=== PATIENT | male | born 1960 | race Caucasian/White ===

== ENCOUNTER 2025-01-01 12:37 | Outpatient (OUT) | payer MEDICARE, SELFPAY ==
--- OUTSIDE RECORDS SUMMARY | 2024-12-25 23:59 | XMS_ITS | Continuity of Care Document ---
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 Appointment Type:URO Office Visit Appointment Date:11/26/2025 09:30:00 AM Scheduled Provider: Location:[facility] Appointment Type:FM Medicare Wellness Subsequent Future Scheduled Tests Laboratory* HgbA1c 07/31/24 * PSA Free & Total 03/09/25 * PSA Free & Total 08/07/24 * PSA Free & Total 07/31/24 * HCV Antibody RFX to Quant PCR 11/26/24 * CBC w/ Auto Diff 07/31/24 * Comprehensive Metabolic Panel 07/31/24 * Lipid Panel 07/31/24 Immunizations Given and Recorded Vaccine Date Status Refusal Reason tetanus toxoid 10/22/20 Recorded diphtheria/pertussis, acel/tetanus adult 06/09/12 Recorded Not Given Vaccine Date Status Refusal Reason influenza virus vaccine, inactivated 02/02/24 Not Given Patient Refuses influenza virus vaccine, inactivated 04/28/22 Not Given Patient Refuses influenza virus vaccine, inactivated 02/03/22 Not Given Patient Refuses influenza virus vaccine, inactivated 07/29/21 Not Given Refused by parent, g uardian, or patient - reschedule influenza virus vaccine, inactivated 07/22/20 Not Given Refused by parent, g uardian, or patient - reschedule SARS-CoV-2 mRNA (tozinameran 5y-11y) vac 04/28/22 Not Given Refused by parent, g uardian, or patient - reschedule SARS-CoV-2 (COVID-19) Ad26 vaccine 01/28/21 Not Gi thuan Refused by parent, guardian, or patient - reschedule influenza virus vaccine, ashley e, trivalent 06/20/19 Not Given Patient Refuses Medications acetaminophen 500 mg Tab 500 mg = 1 tab(s), Oral, q4hr, not to exceed 4000 mg/day, # 60 tab(s), Refills(s) 0, other reason (Rx) Start Date: 04/26/24 Status: Ordered Quantity: 60.0 Unit: tab(s) Repeat number: 1 Advil Oral, q6hr, Refills(s) 0 Start Date: 11/26/24 Status: Ordered Repeat number: 1 amLODIPine 10 mg Tab 10 mg = 1 tab(s), Oral, Daily, # 90 tab(s), Refills(s) 3, Pharmacy: [facility] #[id number], 184, cm, 02/02/24 10:12:00 EDT, Height/Length Dosing, 102.8, kg, 02/02/24 10:12:00 EDT, Weight Dosing Start Date: 02/02/24 Status: Ordered Quantity: 90.0 Unit: tab(s) Repeat number: 4 Cipro 500 mg Tab 500 mg = 1 tab(s), Oral, BID, Start 1 day prior to procedure., # 6 tab(s), Refills(s) 0, Pharmacy: [facility] #[id number], 184, cm, 12/03/24 11:20:00 EDT, Height/Length Dosing, 94.6, kg, 12/03/24 11:20:00 EDT, Weight Dosing Start Date: 12/03/24 Status: Ordered Quantity: 6.0 Unit: tab(s) Repeat number: 1 Colace 100 mg Cap 100 mg = 1 cap(s), Oral, Daily, Refills(s) 0 Start Date: 04/26/24 Status: Ordered Repeat number: 1 duloxetine 60 mg oral delayed release capsule 60 mg = 1 cap(s), Oral, Daily, # 90 cap(s), Refills(s) 3, Pharmacy: [facility] #[id number], 184, cm, 02/02/24 10:12:00 EDT, Height/Length Dosing, 102.8, kg, 02/02/24 10:12:00 EDT, Weight Dosing Start Date: 02/02/24 Status: Ordered Quantity: 90.0 Unit: cap(s) Repeat number: 4 hydrochlorothiazide-lisinopril 12.5 mg-20 mg Tab 1 tab(s), Oral, Daily, 90 tab(s), Refill(s) 3, [facility] #[id number], 184, cm, 02/02/24 10:12:00 EDT, Height/Length Dosing, 102.8, kg, 02/02/24 10:12:00 EDT, Weight Dosing Start Date: 02/02/24 Status: Ordered Quantity: 90.0 Unit: tab(s) Repeat number: 4 melatonin 3 mg Tab 3 mg = 1 tab(s), Oral, Bedtime, PRN Insomnia, Refills(s) 0 Start Date: 04/26/24 Status: Ordered Repeat number: 1 Unisom mg, Oral, Daily, Refills(s) 0 Start Date: 11/26/24 Status: Ordered Repeat number: 1 Problem List Condition Confirmation Course Effective Dates Status H ealth Status Informant Abdominal bloating Confirmed Active Change in bowel habits Confirmed Active BPH with obstruction/lower urinary tract symptoms Confirmed Active Edema of both legs Confirmed Active BMI 31.0-31.9,adult Confirmed Resolved Chronic back pain Confirmed Active Chronic neck pain Confirmed Active Erectile dysfunction Confirmed Active Former smoker Confirmed Active Ganglion cyst of left foot Confirmed Active GERD (gastroesophageal reflux disease) Confirmed Active History of fusion of cervical spine Confirmed Active Hyperglycemia Confirmed Active Hypertension Confirmed Active Insomnia Confirmed Active Meralgia paresthetica of left side Confirmed Active Hyperlipidemia, mixed Confirmed Active Osteoarthritis of multiple joints Confirmed Active Overweight Confirmed Active BMI 27.0-27.9,adult Confirmed Active Leg pain, left Confirmed Active Knee pain, left Confirmed Active Welcome to Medicare preventive visit Confirmed Active Elevated PSA Confirmed Active Rosacea Confirmed Active Seborrheic keratosis Confirmed Active Bilateral shoulder pain Confirmed Active Procedures Procedure Date Related Diagnosis Body Site Status MRI guided biopsy of prostate 12/13/24 Completed MRI of prostate 11/08/24 Completed Colonoscopy 07/04/19 Completed History of lumbar spine surgery 02/2019 Completed Left Transforaminal Epidural Steroid Injection 1 11/21/18 Completed Transrectal biopsy of prosta te using ultrasound guidance 04/29/16 Completed left foot incision and drainage/debridement 04/30/15 Completed excision of ganglion soft ti ssue mass at the lateral left foot 02/26/15 Complet ed b/l Carpal tunnel 2 Compl eted Cervical fusion Neck 3 Co mpleted H/O: vasectomy Completed Lower back discectomy and la minectomy in 2004 Completed Shoulder repair- with clips Completed 1L4/5 Left- 100% relief for 1 day, no relief after that. 2b/l surgeries [id number] Social History Social History Type Response Smoking Status Former smoker, quit more than 30 days ago;Never; Type: Cigarettes; Tobacco use per day: 1; Number of years: 29; Total pack years: 29; Started at age: 19.0; Stopped at age: 48; 1, 2 entered on: 12/13/24 Sex Male Sex Representation Male (finding) 1denies use, quit 2008 2quit 2009 Hospital Discharge Instructions Patient Education 12/25/2024 10:36:33 Prostate Cancer Screening Prostate Cancer Screening Prostate cancer screening is testing that is done to check for the presence of prostate cancer in men. The prostate gland is a walnut-sized gland that is located below the bladder and in front of therectum in males. The function of the prostate is to add fluid to semen during ejaculation. Prostatecancer is one of the most common types of cancer in men. Who should have prostate cancer screening? Screening recommendations vary based on age and other risk factors, as well as between the professional organizations who make the recommendations. In general, screening is recommended if: ??? You are age 50 to 70 and have an average risk for prostate cancer. You should talk with your health care provider about your need for screening and how often screening should be done. Because most prostate cancers are slow growing and will not cause , screening in this age group is generally reserved for men who have a 10- to 15-year life expectancy. ??? You are younger than age 50, and you have these risk factors: ??? Having a father, brother, or uncle who has been diagnosed with prostate cancer. The risk is higher if your family member's cancer occurred at an early age or if you have multiple family members with prostate cancer at an early age. ??? Being a male who is Black or is of [place] or sub-Saharan descent. In general, screening is not recommended if: ??? You are younger than age 40. ??? You are between the ages of 40 and 49 and you have no risk factors. ??? You are 70 years of age or older. At this age, the risks that screening can cause are greater than the benefits that it may provide. If you are at high risk for prostate cancer, your health care provider may recommend that you have screenings more often or that you start screening at a younger age. How is screening for prostate cancer done? The recommended prostate cancer screening test is a blood test called the prostate-specific antigen(PSA) test. PSA is a protein that is made in the prostate. As you age, your prostate naturally produces more PSA. Abnormally high PSA levels may be caused by: ??? Prostate cancer. ??? An enlarged prostate that is not caused by cancer (benign prostatic hyperplasia, or BPH). This condition is very common in older men. ??? A prostate gland infection (prostatitis) or urinary tract infection. ??? Certain medicines such as male hormones (like testosterone) or other medicines that raise testosterone levels. A rectal exam may be done as part of prostate cancer screening to help provide information about the size of your prostate gland. When a rectal exam is performed, it should be done after the PSA level is drawn to avoid any effect on the results. Depending on the PSA results, you may need more tests, such as: ??? A physical exam to check the size of your prostate gland, if not done as part of screening. ??? Blood and imaging tests. ??? A procedure to remove tissue samples from your prostate gland for testing (biopsy). This is theonly way to know for certain if you have prostate cancer. What are the benefits of prostate cancer screening? Screening can help to identify cancer at an early stage, before symptoms start and when the cancer can be treated more easily. ??? There is a small chance that screening may lower your risk of dying from prostate cancer. The chance is small because prostate cancer is a slow-growing cancer, and most men with prostate cancer from a different cause. What are the risks of prostate cancer screening? The main risk of prostate cancer screening is diagnosing and treating prostate cancer that would never have caused any symptoms or problems. This is called overdiagnosisand overtreatment. PSA screening cannot tell you if your PSA is high due to cancer or a different cause. A prostate biopsy is the only procedure to diagnose prostate cancer. Even the results of a biopsy may not tell you if your cancer needs to be treated. Slow-growing prostate cancer may not need any treatment other than monitoring, so diagnosing and treating it may cause unnecessary stress or other side effects. Questions to ask your health care provider ??? When should I start prostate cancer screening? What is my risk for prostate cancer? How often do I need screening? What type of screening tests do I need? How do I get my test results? What do my results mean? Do I need treatment? Where to find more information ??? The [place] [employer]: www.cancer.org ??? [employer]: www.auanet.org Contact a health care provider if: ??? You have difficulty urinating. ??? You have pain when you urinate or ejaculate. ??? You have blood in your urine or semen. ??? You have pain in your back or in the area of your prostate. Summary ??? Prostate cancer is a common type of cancer in men. The prostate gland is located below the bladder and in front of the rectum. This gland adds fluid to semen during ejaculation. ??? Prostate cancer screening may identify cancer at an early stage, when the cancer can be treatedmore easily and is less likely to have spread to other areas of the body. ??? The prostate-specific antigen (PSA) test is the recommended screening test for prostate cancer,but it has associated risks. ??? Discuss the risks and benefits of prostate cancer screening with your health care provider. If you are age 70 or older, the risks that screening can cause are greater than the benefits that it may provide. This information is not intended to replace advice given to you by your health care provider. Make sure you discuss any questions you have with your health care provider. Document Revised: 10/19/2021 Document Reviewed: 10/19/2021 [email or web address] Patient Education ?? 2023 [employer]. Follow Up Care 12/14/2024 14:56:41 With:TOY ALONSO, ROCCO BARNHART Address: When: Unknown Patient Care team information Care Team Personnel Name: Narinder LU MD Position: Ambulatory - Urology Provider Member Role: Attending Address: [address] [facility] [address] Telecom: Name: Tanner OLIVIER MD Position: Ambulatory - Primary Care Provider? Member Role: Primary Care Physician Address: [facility] [address] [place] [id number]- Telecom: Name: Barbra CHAVARRIA, RNVicenta Position: FT CV Nurse Member Role: PICC Nurse Name: Araseli Murrell RN Position: Infant Childcare Provider - Self Assign Member Role: Counter Molder Care Team Related Persons Name: TERRELL HAYWARD Name: TERRELL HAYWARD Name: TERRELL HAYWARD Insurance Providers Guarantor name: SARAH HAYWARD Health Plan Information #: 1 Payer: [employer] Payer Identifier: [id number] Member Number: [id number] Group Number: [id number] Subscriber Identifier: [id number] Relationship to Subscriber: Self Coverage Type: MEDICARE Coverage Verification Date: 24 Telecom: [phone] Address: [facility] [id number] [address]
--- OUTSIDE RECORDS SUMMARY | 2025-01-01 12:40 | XMS_ITS | Encounter Summary ---
Author Organization [facility] Address [address] [place] [address] Care Team Providers Care Director Blood Bank Name Role Phone Tanner Sanchez MD Primary Care Provider Encounter Details Date Type Department Care Team (Late st Contact Info) Description 03/15/2024 Abstract [facility] [address] [place] [phone] Tay Arenas DO [address] [place] [address] Social History Tobacco Use Types Packs/Day Years Used Date Smoking Tobacco: Every Day Cigarettes Alcohol Use Standard Drinks/Week Comments Never 0 (1 standard drink = 0.6 oz pur e alcohol) Sex and Gender Information Value Date Recorded Sex Assigned at Not on file Legal Sex Male 6:38 PM EDT Gender Identity Not on file Sexual Orientation Not on file documented as of this encounter Plan of Treatment Not on file documented as of this encounter Visit Diagnoses Not on filedocumented in this encounter Care Teams Director Blood Bank Relationship Specialty Start Date End Date Tanner Sanchez MD [address] [place] [address] PCP - General Internal Medicine 01/23/24 documented as of this encounter
--- OUTSIDE RECORDS SUMMARY | 2025-01-01 12:40 | XMS_ITS | Encounter Summary ---
Author Organization [facility] Address [address] [place] [address] Care Team Providers Care Mobile Sales Expert Name Role Phone Tanner Sanchez MD Primary Care Provider Encounter Details Date Type Department Care Team (Late st Contact Info) Description 03/15/2024 Abstract [facility] [address] [place] [id number] Tay Arenas DO [address] [place] [address] Social History Tobacco Use Types Packs/Day Years [...] on filedocumented in this encounter Care Teams Mobile Sales Expert Relationship Specialty Start Date End Date Tanner Sanchez MD [address] [place] [address] PCP - General Internal Medicine 01/23/24 documented as of this encounter
--- OUTSIDE RECORDS SUMMARY | 2025-01-01 12:40 | XMS_ITS | Clinical Summary ---
Author Organization [facility] Address [address] [place], [place] [address] Care Team Providers Care Film Crew Member Name Role Phone Tanner Sanchez MD Primary Care Provider [phone] Social History Tobacco Use Types Packs/Day Years Used Date Smoking Tobacco: Never Assessed Sex and Gender Information Value Date Recorded Sex Assigned at Not on file Legal Sex Male 11:23 AM EDT Gender Identity Not on file Sexual Orientation Not on file Plan of Treatment Health Maintenance Due Date Last Done Comments Anxiety Screening 07/11/1977 Depression Screening 07/11/1977 HIV Screening 07/11/1977 Hepatitis C Screening 07/11/1977 DTaP,Tdap,Td Vaccine (1 - Tdap) 07/11/1978 Lipid Screening 07/11/1994 CT Colonography 07/11/2004 Cologuard (FIT-DNA) 07/11/2004 Colonoscopy 07/11/2004 Colorectal Cancer Screening 07/11/2004 Diabetes Screening 07/11/2004 Fecal Occult Blood 07/11/2004 Prostate Cancer Screening Discussion 07/11/2004 Sigmoidoscopy 07/11/2004 Pneumococcal Vaccine: 50+ (1 of 1 - PCV) 07/11/2009 Shingrix Vaccine (1 of 2) 07/11/2009 Advance Directive Discussion 07/11/2024 Influenza Vaccine (#1) 2025 RSV Vaccine (1 - 1-dose 75+ series) 07/11/[address] [place] [address] [place] [address] Care Teams Film Crew Member Relationship Specialty Start Date End Date Tanner Sanchez MD PCP - General Internal Medicine 02/24/15
--- OUTSIDE RECORDS SUMMARY | 2025-01-01 12:40 | XMS_ITS | Clinical Summary ---
Author Organization [place] [facility] Address [id number] [address] [place] [address] Care Team Providers Care Medical Insurance Coding Specialist Name Role Phone Tay Arenas Primary Care Provider [phone] Allergies No known active allergies Medications lisinopriL (PRINIVIL,ZESTR IL) 10 mg tablet Take 1 tablet (10 mg total) by mouth in the morning. Active DULoxetine (CYMBALTA) 20 mg capsule Take 1 capsule (20 mg total) by mouth in the morning. Active amLODIPine (NORVASC) 10 mg tablet Take 1 tablet (10 mg total) by mouth in the morning. Active sulfamethoxazol e-trimethoprim (BACTRIM DS) 800-160 mg per tablet Take 1 tablet by mouth in the morning and 1 tablet before bedtime. Active CEPHalexin (KEFLEX) 500 mg capsule Take 1 capsule (500 mg total) by mouth 3 (three) times a day. Active Active Problems Problem Noted Date Diagnosed Date Osteomyelitis of multiple sites 04/26/2024 Immunizations Immunization Administration Dates Next Due Tdap 10/22/2020 Social History Tobacco Use Types Packs/Day Years Used Date Smoking Tobacco: Never Smokeless Tobacco: Never Alcohol Use Standard Drinks/Week Comments Never 0 (1 standard drink = 0.6 oz pur e alcohol) Childcare Answer Date Recorded Childcare Unknown 10/18/2018 Employment Answer Date Recorded Employment Unknown 10/18/2018 Hunger Screening Answer Date Recorded Within the past 12 months we worried whether our food would run out before we got money to buy more. Never True 04/21/2024 Within the past 12 months th e food we bought just didn't last and we didn't have money to get more. Never True 04/21/2024 Purpose - Life Answer Date Recorded Purpose and direction in life Unknown Sex and Gender Information Value Date Recorded Sex Assigned at Not on file Legal Sex Male 11:35 AM EDT Gender Identity Not on file Sexual Orientation Not on file Last Filed Vital Signs Vital Sign Reading Time Taken Comments Blood Pressure 130/72 05/17/2024 8:10 AM EST Pulse 64 05/17/2024 8:10 AM EST Temperature 36.5 C (97.7 F) 05/17/2024 8:10 AM EST Respiratory Rate 18 05/17/2024 8:09 AM EST Oxygen Saturation 100% 05/17/2024 8:10 AM EST Inhaled Oxygen Concentration - - Weight 100.1 kg (220 lb 9.6 oz) 05/17/2024 8:09 AM EST Height 182.9 cm (6' 0.01 ) 05/17/2024 8:09 AM ES T Body Mass Index 29.91 05/17/2024 8:09 AM EST Plan of Treatment Health Maintenance Due Date Last Done Comments Depression Screening 1971 Adult BMI Follow Up Plan 07/11/1977 Zoster (Shingles) Vaccine (1 of 2) 07/11/2009 Influenza Vaccine 01/07/2025 Tobacco Screening 04/27/2025 04/27/2024 Adult BMI Screening 05/17/2025 05/17/2024 Fall Risk Screening 05/17/2025 05/17/2024 DTaP,Tdap and Td Vaccines (3 - Td or Tdap) 10/22/2030 10/22/2020, 06/09/2012 Medical Devices Not on file Insurance [employer] Care Teams Medical Insurance Coding Specialist Relationship Specialty Start Date End Date Tay Arenas DO [address] [place] [address] PCP - General Orthopaedic Surgery 04/21/24
== END 2025-01-01 12:38 | disposition home or self-care (01) ==
LOC: PST 12:38
PROVIDERS: Visit Provider Surgery
DX: Z01.818 Encounter for other preprocedural examination (principal); R19.4 Change in bowel habit

== ENCOUNTER 2025-01-09 06:55 | Day surgery (SDC) | payer MEDICARE, SELFPAY ==
--- NOTE | 2025-01-09 | OP_ITS ---
OPERATION DATE: 01/09/2025 PREOPERATIVE DIAGNOSIS: Change in bowel habits, abdominal bloating. POSTOPERATIVE DIAGNOSIS: Redundant colon. PROCEDURE: Colonoscopy to cecum. SURGEON: Zev Javed M.D. ANESTHESIA: Monitored anesthesia care. ESTIMATED BLOOD LOSS: Zero. INDICATIONS AND CONSENT: Patient is a 64-year-old male, with history of bowel changes, with increased bloating and constipation. Indications, risks, benefits, alternatives of proceeding with colonoscopy were explained extensively to the patient, including the risks of bleeding, colon perforation or anesthetic complications. All of his questions were answered. Informed consent was obtained. PROCEDURE: Patient brought to the operating room, placed in the left lateral decubitus position. Monitored anesthesia care was provided. Rectal exam was performed which showed no masses or blood. The scope was inserted into the anal canal. Under direct visualization was advanced. It was advanced to the cecum where cecal markings were clearly identified. Upon withdrawal of the scope, mucosal surfaces were carefully examined. There were no mass lesions or polyps. No inflammatory changes or ulcerations. There was some brown liquid stool throughout the colon that was partially irrigated clear. There was mild sigmoid diverticulosis without inflammatory changes or scarring. There was noted to be some redundancy of the colon. The scope was retroflexed in the anal canal. There was no significant hemorrhoidal disease. The scope was then withdrawn. Patient tolerated procedure well, was sent to recovery room in good condition.f/u screening colonoscopy in 10 years. CC: Johnny Carrera
--- OUTSIDE RECORDS SUMMARY | 2025-01-09 06:59 | XMS_ITS | Clinical Summary ---
Author Organization [facility] Address [address] [place], [place] [id number] Care Team Providers Care Guidance Counselor Name Role Phone Tanner Sanchez MD Primary Care Provider [phone] Social History Tobacco Use Types Packs/Day Years [...] 1-dose 75+ series) 07/11/[address] [place] [address] [place] [address] Care Teams Guidance Counselor Relationship Specialty Start Date End Date Tanner Sanchez MD PCP - General Internal Medicine 02/24/15
--- OUTSIDE RECORDS SUMMARY | 2025-01-09 06:59 | XMS_ITS | Clinical Summary ---
Author Organization [place] [facility] Address [id number] [address] [place] [address] Care Team Providers Care Apparatus Lineman Name Role Phone Tay Arenas Primary Care Provider [phone] Allergies No known active allergies Medications lisinopriL [...] Medical Devices Not on file Insurance [employer] Care Teams Apparatus Lineman Relationship Specialty Start Date End Date Tay Arenas DO [address] [place] [address] PCP - General Orthopaedic Surgery 04/21/24
--- OUTSIDE RECORDS SUMMARY | 2025-01-09 06:59 | XMS_ITS | Encounter Summary ---
Author Organization [facility] Address [address] [place] [address] Care Team Providers Care Nursing Technician Name Role Phone Tanner Sanchez MD Primary Care Provider Encounter Details Date Type Department Care Team (Late st Contact Info) Description 03/15/2024 Abstract [facility] [address] [place] [phone] Tay Arenas DO [address] [place] [address] Social History Tobacco Use Types Packs/Day Years [...] on filedocumented in this encounter Care Teams Nursing Technician Relationship Specialty Start Date End Date Tanner Sanchez MD [address] [place] [address] PCP - General Internal Medicine 01/23/24 documented as of this encounter
[2025-01-09 07:00] VITALS: BP 125/67; PULSE 59; TEMP 36.4; O2SAT 97; BMI 28.1
--- OUTSIDE RECORDS SUMMARY | 2025-01-09 07:00 | XMS_ITS | Encounter Summary ---
Author Organization [facility] Address [address] [address] Care Team Providers Care Clerk Supervisor Name Role Phone Tanner Sanchez MD Primary Care Provider Encounter Details Date Type Department Care Team (Late st Contact Info) Description 03/15/2024 Abstract [facility] [address] [place] [id number] Tay Arenas DO [address] [place] [address] Social History Tobacco Use Types Packs/Day Years [...] on filedocumented in this encounter Care Teams Clerk Supervisor Relationship Specialty Start Date End Date Tanner Sanchez MD [address] [place] [address] PCP - General Internal Medicine 01/23/24 documented as of this encounter
[2025-01-09 08:24] VITALS: BP 112/68; PULSE 60; TEMP 36.1; O2SAT 96
[2025-01-09 08:38] VITALS: BP 96/60; PULSE 57; O2SAT 99
[2025-01-09 08:54] VITALS: BP 118/75; PULSE 61; O2SAT 98
== END 2025-01-09 08:54 | disposition home or self-care (01) ==
LOC: SURGOUT 06:58
PROVIDERS: PCP Internal Medicine; Visit Provider Surgery
PROC: (CPT 45378; principal; 2025-01-09 08:20)
DX: R19.4 Change in bowel habit (principal); Q43.8 Other specified congenital malformations of intestine; I10 Essential (primary) hypertension; E78.5 Hyperlipidemia, unspecified; M19.90 Unspecified osteoarthritis, unspecified site; N40.0 Benign prostatic hyperplasia without lower urinary tract symptoms; Z98.1 Arthrodesis status; R14.0 Abdominal distension (gaseous); Z87.891 Personal history of nicotine dependence
CPT/HCPCS: 45378; J2704